=== PATIENT | male | born 1980 | race Caucasian/White ===

== ENCOUNTER 2019-07-30 10:59 | Emergency (ER) | payer OTHER ==
[~2019-07-30] VITALS: Ht 182.9 cm; Wt 129.3 kg
[~2019-07-30 10:59] MED LIST: ALBUTEROL2.5 MG/0.1; AMITRIPTYLINE H25 M2 PO; BENICAR20 MG; LISINOPRIL20 MG PO; NORCO 5-325 TA1 EACH PO; PERCOCET 5-3251 EACH PO; ROBAXIN 750 MG750 M1 PO; TAMSULOSIN HCL0.4 MG PO; ZOFRAN4 MG PO; ZYRTEC10 M2 PO
[2019-07-30] MEDS ORDERED: VALSARTAN40 MG PO (11:04)
[2019-07-30] MEDS ORDERED: METFORMIN HCL500 M3 PO (11:04)
[2019-07-30] MEDS ORDERED: ZOFRAN ODT4 MG PO (13:22)
[2019-07-30 13:44] VITALS: BP 150/93
== END 2019-07-30 13:45 | disposition home or self-care (01) ==
LOC: ER 10:59
DX: R11.2 Nausea with vomiting, unspecified (principal); J06.9 Acute upper respiratory infection, unspecified; R19.7 Diarrhea, unspecified; F17.210 Nicotine dependence, cigarettes, uncomplicated; I10 Essential (primary) hypertension; E66.01 Morbid (severe) obesity due to excess calories; Z90.49 Acquired absence of other specified parts of digestive tract; Z68.38 Body mass index [BMI] 38.0-38.9, adult; Z88.2 Allergy status to sulfonamides; Z88.8 Allergy status to other drugs, medicaments and biological substances

== ENCOUNTER → 2020-05-21 | Outpatient (CLI) | payer BC ==
[~2020-05-21] MED LIST changes: +METFORMIN HCL500 M3 PO; +VALSARTAN40 MG PO; +ZOFRAN ODT4 MG PO
== END ==
LOC: LAB 14:10
PROVIDERS: ATTEND Nurse Practitioner
DX: Z20.828 Contact with and (suspected) exposure to other viral communicable diseases (principal)